=== PATIENT | male | born 1990 | race Caucasian/White ===

== ENCOUNTER 2021-06-05 01:47 | Emergency (ER) | payer OTHER ==
[~2021-06-05] VITALS: Ht 172.7 cm; Wt 127.0 kg
[~2021-06-05 01:47] MED LIST: ALEVE220 MG PO; NAPROXEN500 MG PO; NORCO 10-325 T1 EACH PO
== END 2021-06-05 02:48 | disposition home or self-care (01) ==
LOC: ED 01:47
DX: S40.852A Superficial foreign body of left upper arm, initial encounter (principal); Z88.5 Allergy status to narcotic agent; Z23 Encounter for immunization; W45.8XXA Other foreign body or object entering through skin, initial encounter
CPT/HCPCS: 90471; 90715; 99283